=== PATIENT | male | born 1955 | race Caucasian/White ===

== ENCOUNTER 2017-07-06 21:11 | Observation (INO) | payer OTHER ==
[~2017-07-06] VITALS: Ht 175.3 cm; Wt 95.1 kg
[2017-07-06] MEDS ORDERED: ALEVE220 M1 PO (21:32)
--- NOTE | 2017-07-07 01:22 | NUR ---
recieved report over phone from wyatt in ER.
--- NOTE | 2017-07-07 01:44 | NUR ---
PT ADMITTED TO ROOM 119 FROM ED. PT ALERT AND ORIENTATED, TRANSFERED SELF FROM STRETCHER TO BED. STATED HE HAS SOME PAIN, PAIN STARTED AT DINNER, WELL VOMITING. PT IS AWARE HE IS NPO.
--- NOTE | 2017-07-07 03:09 | NUR ---
PATIENT WAS SLEEPING. I OPENED THE DOOR TO HIS ROOM TO CHECK ON HIM AND IT WOKE HIM UP...STATES HIS PAIN IS AT A TOLERABLE LEVEL. DENIES NEEDS. IVF INFUSING W/O DIFFICULTY. CALL LIGHT IN REACH.
--- NOTE | 2017-07-07 04:45 | NUR ---
PATIENT VOIDED IN URINAL. C/O PAIN 10/07 IN R FLANK. PAIN MEDICINE ADMINISTERED PER JUN. LUNGS CLEAR, BS ACTIVE, HR REG, NO EDEMA. PATIENT DENIES NAUSEA. SUPPLIED PATIENT WITH NEW MOUTH SWABS AND CHAPSTICK. DENIES FUTHER NEEDS. CALL LIGHT IN REACH.
--- NOTE | 2017-07-07 07:35 | NUR ---
RECIEVED REPORT FROM KODY HOPE. PT IS A/O IN BEED WITH AT BEDSIDE. LR INFUSING AT 125. PT IS NPO AT THIS TIME. REPORTS RIGHT FLANK PAIN. PAIN MEDICATION GIVEN. REPORTS NO OTHER NEEDS AT THIS TIME. CALL LIGHT WITHIN REACH.
--- NOTE | 2017-07-07 09:00 | NUR ---
PT IN BED. READY FOR SEGERY. DID PAVEL. WIPE DOWN. AM CARE.
--- NOTE | 2017-07-07 09:05 | NUR ---
FORMS FILLED OUT AND PRINTED FOR CHART. LR WITH STRAIGHT TUBING HANGING IN ROOM. ANESTHESIOLOGIST IN WITH PATIENT NOW. CONSENT SIGNED AND ON FRONT OF CHART. PT WILL DO HIBACLEANSE WIPES SOON SUPERVISOR CUTTING DEPARTMENT OUT OF ROOM.
--- NOTE | 2017-07-07 09:37 | NUR ---
PT OFF UNIT TO SURGERY AT 0930. PROTONIX NOT GIVEN BEFORE SURGERY ON MEDICAL FLOOR. ATTEMPTED TO CALL SURGICAL DESK, BUG TRIMMER, AND SURGERY NURSE TO INFORM OF MISSED DOSE. UNABLE TO REACH RN.
--- NOTE | 2017-07-07 11:00 | NUR ---
PT AT PAVEL.
--- NOTE | 2017-07-07 11:05 | CONS ---
[facility] [address], [place] [address] Signed DATE OF CONSULTATION: 07/06/2017 CHIEF COMPLAINT: Right upper quadrant and right back pain. HISTORY OF PRESENT ILLNESS: Art is a 62-year-old gentleman, who I know from the past. Over the last couple days, he has had significant pain in the right upper quadrant radiating through to his back. He has had nausea, vomiting, diarrhea, and anorexia. He said this is the third episode in about 6 months. He has already talked to his primary care provider about it, who warned him it was probably gallstones. Art came to emergency room last night. White count was borderline at 10.5 with unremarkable liver function test. Lipase was unremarkable. He initially had a Uro-CT scan done and it was fine. Therefore, an ultrasound of the right upper quadrant was ordered and sure enough he has gallstones with a thickened gallbladder wall around 6.4 mm and a positive Mcneil sign. As a result, I was asked to admit him as a general surgeon on-call. He has been given Levaquin and Flagyl and IV fluids along with pain control. He said overall this morning, he is feeling better so long as the pain medicine is on board. PAST MEDICAL HISTORY: 1. Right knee osteoarthritis. 2. Anxiety. 3. Hiatal hernia. 4. Gastroesophageal reflux disease. 5. Diverticulosis. 6. Back pain. 7. Gallstones. PAST SURGICAL HISTORY: Right knee arthroscopy [place] [address] Toure in [place], [place]. Also, left fifth digit surgery with Dr. Toure as well as nose and sinus surgery in 1998. ALLERGIES: None. MEDICATIONS: Aspirin and naproxen. SOCIAL HISTORY: He does not smoke or drink. He is to Kaye at [phone]. They have 3 children. His daughter is a pilot plant research technician in the in [place]. 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 Dr. Danish Ramsey is his primary care provider. Dr. Toure is his orthopedic surgeon in [place], [place]. They prefer the [facility] Electronically Signed By: ERROL MAYER MD 07/07/17 1105 PATIENT NAME: ART AGRAWAL CONSULTATION DATE OF : 59 REPORT #: [id number] PHYSICIAN: ERROL MAYER MD PCP: Candice RAMSEY MD REPORT IS CONFIDENTIAL AND NOT TO BE RELEASED WITHOUT AUTHORIZATION [facility] [address], [place] [address] Signed Pharmacy in [place], [place]. FAMILY HISTORY: Father had a cancerous lesion removed from his face in 2007. There was no heart disease or colon cancer or polyps in the family. Apparently, his mother was slow to wake up from surgery. REVIEW OF SYSTEMS: He had 10 systems reviewed and he said he has been doing well. He cut back on the Prilosec and only uses as needed for the acid reflux. He said his back and knee still bother him. PHYSICAL EXAMINATION: VITAL SIGNS: His blood pressure is 127/63, his heart rate is 57, respiratory rate 16, his temperature is 97.9, and he is 96% on room air. He is 5 feet 9 inches at 95 kg. GENERAL: He is alert, awake, and interactive. He does not appear systemically ill or toxic. He is not jaundiced. His is in the room with him. LUNGS: Clear to auscultation. HEART: Regular rate and rhythm. ABDOMEN: Benign. He told me that he just had his pain medication, but he is tender in the right upper quadrant. LABORATORY DATA: His white blood cell count 10.5, hemoglobin 15, neutrophils 61. BUN 18, creatinine 1.1, total bilirubin 0.5, AST 20, ALT 25, alkaline phosphatase 53, albumin is 4.4, lipase 16. RADIOGRAPHIC STUDIES: Uro-CT scan is negative. The ultrasound of the right upper quadrant shows the gallstones with a gallbladder wall thick at 6.4 mm and a positive Mcneil sign. ASSESSMENT AND PLAN: Art is a 62-year-old gentleman, who presents with [id number] cholecystitis and cholelithiasis. I have discussed with Art and his , the location of function of the gallbladder. We have discussed laparoscopic versus open cholecystectomy. They understand expected intraop and postop course. We did review the risk of surgery including, but not limited to, bleeding, infection, scarring, change in contour of the skin, damage to bowel, damage to main bile duct, incisional hernias, and other unforeseen comorbidities. They have expressed understanding and would like to proceed with surgery. Errol Mayer MD Electronically Signed By: ERROL MAYER MD 07/07/17 1105 PATIENT NAME: ART AGRAWAL CONSULTATION DATE OF : 59 REPORT #: [id number] PHYSICIAN: ERROL MAYER MD PCP: Candice RAMSEY MD REPORT IS CONFIDENTIAL AND NOT TO BE RELEASED WITHOUT AUTHORIZATION [facility] [address] [place] [address] Signed ALB/MODL /[id number] cc: MD Candice Olson MD Copies: ERROL MAYER MD, W NORMAN MD ~ Electronically Signed By: ERROL MAYER MD 07/07/17 1105 PATIENT NAME: ART AGRAWAL CONSULTATION DATE OF : 59 REPORT #: [id number] PHYSICIAN: ERROL MAYER MD PCP: Candice RAMSEY MD REPORT IS CONFIDENTIAL AND NOT TO BE RELEASED WITHOUT AUTHORIZATION
--- NOTE | 2017-07-07 11:05 | NUR ---
07/07/17 1105 Helder Odonnell 1052: PT ARRIVED TO PACU VIA STRETCHER. PT SLEEPING, ORAL AIRWAY AND O2 AT 10L IN PLACE. PT REACTS TO COMMANDS. VITALS STABLE, PT APPEARS COMFORTABLE. 1053: PT WAKING REACHING FOR MOUTH. ORAL AIRWAY REMOVED. O2 TITRATED TO 6L VIA SIMPLE MASK. PT DENIES PAIN AND NAUSEA. C/O OF ITCHING AROUND NOSE. 1100: PT AWAKE TALKING WITH RN'S. PT DENIES PAIN OR NAUSEA. ICE TO INCISIONS.
--- NOTE | 2017-07-07 11:31 | NUR ---
received pt from surgery. pain 3/10. no nausea. pt is a/o. at bedside.
[2017-07-07] MEDS ORDERED: NORCO 5-325 TA1 EACH PO (11:57)
--- NOTE | 2017-07-07 12:02 | NUR ---
GAVE NORCO 5MG FOR PAIN 07/07. PT TOLLERATED WATER AND JELLO. ICE PACK ON ABDOMEN. REPORTS NO NAUSEA. CALL LIGHT WITHIN REACH
--- NOTE | 2017-07-07 12:29 | NUR ---
PT TOLLERATING PO INTAKE. PAIN IS 3/10 IN ABDOMEN. NO NAUSEA. LOW GRADE TEMP AT 99.3. EDUCATED IS USE. AFTER USE TEMP WAS 98.2. CALL [facility] WITHIN REACH. NO NEEDS AT THIS TIME. LAP SITE DRESSING ARE C/D/I.
--- NOTE | 2017-07-08 08:02 | EKG ---
[facility] [address] [place] [address] Signed Sinus bradycardia T wave abnormality, consider inferior ischemia Abnormal ECG No previous ECGs available Confirmed by JUANA DELAROSA MD ([id number]) on 07/08/2017 8:02:08 AM Electronically Signed By: JUANA DELAROSA MD 07/08/17 0802 PATIENT NAME: ART AGRAWAL SYLVIA Electrocardiogram DATE OF : 59 PHYSICIAN: JUANA DELAROSA MD REPORT #: [id number] REPORT IS CONFIDENTIAL AND NOT TO BE RELEASED WITHOUT AUTHORIZATION
--- NOTE | 2017-07-09 07:10 | OR ---
[facility] [address] [place], [place] [address] Signed DATE OF OPERATION: 07/07/2017 SURGEON: Errol Mayer MD PREOPERATIVE DIAGNOSIS: Cholelithiasis with cholecystitis. POSTOPERATIVE DIAGNOSES: 1. Cholelithiasis with cholecystitis. 2. Question choledochal cyst in common hepatic duct. PROCEDURE: Laparoscopic cholecystectomy with intraoperative cholangiogram. ESTIMATED BLOOD LOSS: Unremarkable. FINDINGS: Art had significantly distended and thickened gallbladder. There was edema throughout the entire gallbladder wall and around the triangle of Calot. He had an unremarkable intraoperative cholangiogram except there may be a little dilation in the common hepatic duct just distal to where the left and right hepatic ducts joined. Also, his gallbladder was full of 10-12 mm yellow cholesterol gallstones. INDICATIONS: Art is a 62-year-old gentleman, I have known from several years ago. He over the last 6 months or so, he has had trouble with right upper quadrant abdominal pain radiating through to his back. He said it is worse when he eats. He had mentioned to his primary care provider who felt it was probably his gallbladder. He said when the symptoms got worse, he would consider having the gallbladder removed. For the last 2 days, he has had quite a bit of pain radiating through his upper back with nausea, vomiting, and anorexia and diarrhea. He finally came to the emergency room last night for evaluation. Because of the back pain, he had a Uro-CT scan performed and this was unremarkable. He then had a right upper quadrant ultrasound done and it showed the thickened gallbladder wall with multiple stones and unremarkable common bile duct. His laboratory work was unremarkable except the white count was up at 10.5. I was asked to admit him as a general surgeon on-call. He was given antibiotics, IV fluids, and pain control. This morning, he said he was doing better because he just received some additional pain medication. I had met with Art and his in the room. We discussed the location of function of the gallbladder. We discussed laparoscopic versus open cholecystectomy. Electronically Signed By: ERROL MAYER MD 07/09/17 0710 PATIENT NAME: ART AGRAWAL OPERATIVE REPORT DATE OF : 59 REPORT #: [id number] PHYSICIAN: ERROL MAYER MD PCP: Candice WEINBERG MD REPORT IS CONFIDENTIAL AND NOT TO BE RELEASED WITHOUT AUTHORIZATION [facility] [address], [place] [address] Signed They understands expected intraop and postop course. There is risk of surgery including, but not limited to bleeding, infection, scarring, change in contour of the skin, damage to the bowel, damage to main bile duct, incisional hernias and other unforeseen comorbidities. He had expressed understanding and wished to proceed. PROCEDURE NOTE: Art was taken into our operating room and placed in the supine position under general endotracheal tube anesthesia. He was on preoperative antibiotics along with subcutaneous heparin. SCDs were utilized. On repeat exam, we noticed that he had just a small umbilical hernia. Consequently, we utilized our standard supraumbilical transverse incision and we the umbilical skin from the fascial defect with the help of the cautery. The fascial defect was 10-12 mm in diameter. It contained preperitoneal fat. We were able to insert our Lalo trocar through this fascial defect into the abdomen without difficulty. The abdomen was insufflated and the remaining trocars were placed under direct visualization without difficulty. We could immediately see the gallbladder, it was edematous and in color. We found that it was quite tense and we had to open the top of the gallbladder with the cautery and suctioned out some fluid in order to hold the gallbladder in the right upper quadrant. After this, the triangle of Calot was dissected free and a clip was placed on a cystic artery and it was divided. The intraoperative cholangiocatheter was inserted into the cystic duct. An intraoperative cholangiogram was performed. There may be a little dilation of the duct just distal to where the left and right hepatic ducts come together. We will wait and see what our radiologist feels. The contrast, however, flow quite readily into the duodenum. We saw no filling defects. The cystic duct stump was then secured with a PDS Endoloop and 2 clips were placed on the cystic duct stump to son its location. After this, the gallbladder was removed from the gallbladder fossa slowly with the help of the cautery and placed into an EndoCatch bag. The right upper quadrant was irrigated and suctioned out until clear. They have been quite a bit of edema in that surgical plane. We then used our laparoscopic suturing device to pass 0 Vicryl suture on either side of the fascia of the subxiphoid trocar site. This was tied down to close this fascia primarily. After this, the gas was allowed to escape and the remaining trocars were removed. We had to open the umbilical fascial defect just a few millimeters in order to get the gallbladder out of the abdomen. The gallbladder was passed off the field to our circulating nurse and it was opened on the back table and the findings are as above. Again, pictures were taken for photodocumentation. After this, we closed the umbilical fascial defect transversely with a running #1 Prolene suture. The wound was infiltrated with local anesthetic and irrigated until clear. We brought the umbilical skin down to the midline fascia with an interrupted 2-0 PDS suture. The dermis was reapproximated with interrupted 3-0 subcuticular Monocryl sutures. After this, we closed the skin and dermis of the remaining trocar sites with interrupted 3-0 subcuticular Monocryl sutures. Dry gauze and tape were applied to all incisions. Art was awakened from his anesthesia, extubated in the OR, and taken to recovery room in Electronically Signed By: ERROL MAYER MD 07/09/17 0710 PATIENT NAME: ART AGRAWAL OPERATIVE REPORT DATE OF : 59 REPORT #: [id number] PHYSICIAN: ERROL MAYER MD PCP: Candice WEINBERG MD REPORT IS CONFIDENTIAL AND NOT TO BE RELEASED WITHOUT AUTHORIZATION [address] [address] Signed stable condition. Errol Mayer MD ALB/MODL /[id number] cc: MD Candice Olson MD Copies: ERROL MAYER MD, W NORMAN MD ~ Electronically Signed By: ERROL MAYER MD 07/09/17 0710 PATIENT NAME: ART AGRAWAL OPERATIVE REPORT DATE OF : 59 REPORT #: [id number] PHYSICIAN: ERROL MAYER MD PCP: Candice WEINBERG MD REPORT IS CONFIDENTIAL AND NOT TO BE RELEASED WITHOUT AUTHORIZATION
== END 2017-07-07 14:25 | disposition home or self-care (01) ==
LOC: ED 21:11 → MS 21:13
PROVIDERS: ADMIT Colon & Rectal Surgery
PROC: 0FT44ZZ Resection of Gallbladder, Percutaneous Endoscopic Approach (ICD-10-PCS; principal; 2017-07-07 09:30)
PROC: BF101ZZ Fluoroscopy of Bile Ducts using Low Osmolar Contrast (ICD-10-PCS; principal; 2017-07-07 09:30)
DX: K80.12 Calculus of gallbladder with acute and chronic cholecystitis without obstruction (principal); M17.11 Unilateral primary osteoarthritis, right knee; K21.9 Gastro-esophageal reflux disease without esophagitis; K44.9 Diaphragmatic hernia without obstruction or gangrene; M54.9 Dorsalgia, unspecified; Z87.891 Personal history of nicotine dependence; Z79.1 Long term (current) use of non-steroidal anti-inflammatories (NSAID); Z79.82 Long term (current) use of aspirin
CPT/HCPCS: 00790; 74176; 74300; 76705; 80053; 81001; 83690; 85025; 93005; 93010; 96361; 96372; 96374; 96375; 96376; 99285; G0378; J0330; J0694; J1100; J1170; J1644; J1885; J1956; J2405; J2704; J3010; J7030; J7120; Q9967

== ENCOUNTER 2024-11-27 11:56 | Day surgery (SDC) | payer MEDICARE, OTHER ==
[~2024-11-27] VITALS: Ht 175.3 cm; Wt 86.3 kg
[~2024-11-27 11:56] MED LIST: ALEVE220 M1 PO; CEFAZOLIN SODIUM 2 GM/20 ML SYR IV SCH; IBLOOD GLUCOSE TEST STRIP 1 EA TEST VI PRN; LACTATED RINGER'S 1,000 ML IV SCH; LIDOCAINE HCL 1% 5 ML SDV INJ ONE; MIDAZOLAM HCL 5 MG/5 ML VIAL IV PRN; NORCO 5-325 TA1 EACH PO; fentaNYL citrate 100 MCG/2 ML VIAL IV PRN
[2024-11-27 12:19] VITALS: BP 153/77
[2024-11-27] MEDS ORDERED: fentaNYL citrate 100 MCG/2 ML VIAL ONE (12:49)
[2024-11-27] MEDS ORDERED: MIDAZOLAM HCL 5 MG/5 ML VIAL ONE (12:49)
--- NOTE | 2024-11-27 13:40 | NUR ---
11/27/24 1340 Princess Mckinney 1334 PT ARRIVED TO PACU ON 2L VIA NC, O2 SAT 100%. O2 REMOVED. PT RESTING AND REORIENTED TO PACU. 1338 MD AT BEDSIDE TALKING TO PT.
[2024-11-27 13:59] VITALS: BP 133/86
--- NOTE | 2024-12-01 13:44 | OR ---
[facility] [address] [place], [place] [address] Signed DATE OF OPERATION: 11/27/2024 SURGEON: Jayshree Desir MD PREOPERATIVE DIAGNOSIS: Screening colonoscopy. POSTOPERATIVE DIAGNOSIS: Normal colon to cecum. PROCEDURE: Total colonoscopy to cecum. ANESTHESIA: Intravenous sedation, fentanyl 100 mcg, and Versed 7 mg total. INDICATION: This 69-year-old white man is a patient of Dr. Christian. He underwent colonoscopy [address] Baltazar Field, which was said to be negative. He has no current symptoms of bleeding, diarrhea, or constipation and no family history of colon cancer. He understands risk of screening colonoscopy including, but not limited to bleeding, infection, and perforation and wished to proceed. FINDINGS: The prep was excellent. Complete colonoscopy was undertaken of the cecum without question. The entire colon was entirely normal without diverticula, colitis, polyps, or other abnormality. DESCRIPTION OF PROCEDURE: The patient was brought to the endoscopy suite and placed in lateral decubitus position, given intravenous sedation to the point of slurred speech and nystagmus. Digital rectal examination was normal. An Olympus video colonoscope was passed in the rectum and manipulated throughout the colon ultimately intubating the cecum itself. The ileocecal valve and appendiceal orifice were normal. Scope was withdrawn. From that point, examination throughout showed no sign of abnormality specifically no polyps, diverticular formation, or cancer. Retroflexed view was normal. Scope was removed. The patient was taken to recovery room in good condition. Electronically Signed By: JAYSHREE DESIR MD 12/01/24 1344 PATIENT NAME: ART AGRAWAL OPERATIVE REPORT DATE OF : 59 REPORT #: [id number] PHYSICIAN: JAYSHREE DESIR MD PCP: HUNG CHRISTIAN MD REPORT IS CONFIDENTIAL AND NOT TO BE RELEASED WITHOUT AUTHORIZATION [facility] [address] [facility] [place], [place] [address] Signed CONCLUDING DIAGNOSIS: Normal colon to cecum. PLAN: Recommend repeat colonoscopy in 10 years, sooner if symptoms should develop. He will return to the ongoing care of Dr. Christian. MD BARBARA Aldridge/FRANCK /[id number] cc: Dr. Christian Copies: ~ Electronically Signed By: JAYSHREE DESIR MD 12/01/24 1344 PATIENT NAME: ART AGRAWAL OPERATIVE REPORT DATE OF : 59 REPORT #: [id number] PHYSICIAN: JAYSHREE DESIR MD PCP: HUNG CHRISTIAN MD REPORT IS CONFIDENTIAL AND NOT TO BE RELEASED WITHOUT AUTHORIZATION
== END 2024-11-27 14:18 | disposition home or self-care (01) ==
LOC: DS 11:56
PROVIDERS: ATTEND Surgery
PROC: 0DJD8ZZ Inspection of Lower Intestinal Tract, Via Natural or Artificial Opening Endoscopic (ICD-10-PCS; principal; 2024-11-27 13:00)
DX: Z12.11 Encounter for screening for malignant neoplasm of colon (principal); Z90.49 Acquired absence of other specified parts of digestive tract
CPT/HCPCS: 99153; G0500; J0690; J2250; J3010; J7121